=== PATIENT | female | born 1960 | race Caucasian/White ===

== ENCOUNTER 2019-12-04 16:21 | Emergency (ER) | payer BC ==
[~2019-12-04] VITALS: Ht 160 cm; Wt 83.5 kg
[~2019-12-04 16:21] MED LIST: AMOX500T2 PO; ATEN50TA PO; IBUP-1970 PO; P-EP1TAB80 PO; PRAZ5CAP2 PO
[2019-12-04 16:58] VITALS: BP_SYST 144
[2019-12-04 17:41] LABS: BASOPHILS # (AUTO) 0.1 K/uL (0.0-0.2); BASOPHILS % (AUTO) 0.9 % (0.0-2.0); EOSINOPHILS # (AUTO) 0.1 K/uL (0.0-0.4); EOSINOPHILS % (AUTO) 1.7 % (0.0-4.0); HEMATOCRIT 43.5 % (36-48); HEMOGLOBIN 14.6 g/dL (12.0-16.0); LYMPHOCYTES # (AUTO) 2.3 K/uL (1.0-5.5); LYMPHOCYTES % (AUTO) 30.2 % (20.5-51.5); MEAN CORPUSCULAR HEMOGLOBIN 31 pg (27-31); MEAN CORPUSCULAR HGB CONC 34 % (32-36); MEAN CORPUSCULAR VOLUME 92 fL (79.0-98.0); MONOCYTES # (AUTO) 0.6 K/uL (0.0-1.0); MONOCYTES % (AUTO) 8.4 % (1.7-9.3); NEUTROPHILS # (AUTO) 4.5 K/uL (1.8-7.7); NEUTROPHILS % (AUTO) 58.8 % (40.0-70.0); PLATELET COUNT (AUTO) 262 K/uL (130-430); RED BLOOD CELL COUNT(AUTO) 4.75 MIL/uL (4.2-6.2); RED CELL DISTRIBUTION WIDTH 13.5 % (9.0-15.0); WHITE BLOOD COUNT (AUTO) 7.7 K/uL (4.8-10.8)
[2019-12-04 17:48] LABS: ANION GAP 8 (5-15); CALCIUM 9.8 mg/dL (8.4-11.0); CHLORIDE 100 mmol/L (98-107); CREATININE 0.87 mg/dL (0.55-1.30); GLUCOSE 97 mg/dL (70-99); SODIUM SERUM 137 mmol/L (136-145); UREA NITROGEN, BLOOD 19 mg/dL (8-21)
[2019-12-04 17:49] LABS: GFR AFRICAN AMERICAN 85 mL/min (>90)
[2019-12-04] MEDS ORDERED: POTASSIUM CHLORIDE 20 MEQ TAB.PRT.SR PO ONE (18:30)
[2019-12-04 18:56] VITALS: BP_SYST 142
== END 2019-12-04 18:56 | disposition home or self-care (01) ==
LOC: SED 16:21
DX: R06.00 Dyspnea, unspecified (principal); R07.89 Other chest pain; I10 Essential (primary) hypertension; Z79.899 Other long term (current) drug therapy
CPT/HCPCS: 36415; 80048; 81002; 84484; 85025; 85379; 99283

== ENCOUNTER 2020-07-31 09:14 | Outpatient (CLI) | payer BC | END 2020-07-31 20:33 | disposition home or self-care (01) | LOC: SNM 09:14 | PROVIDERS: ATTEND Family Medicine Geriatric Medicine | DX: E21.0 Primary hyperparathyroidism (principal) | CPT/HCPCS: 78070; A9500 ==

== ENCOUNTER 2022-10-26 10:56 | Emergency (ER) | payer BC ==
[~2022-10-26] VITALS: Ht 162.6 cm; Wt 76.7 kg
[2022-10-26 11:24] VITALS: BP_SYST 162
--- NOTE | 2022-10-26 11:26 | NUR ---
Patient to ER bed 06 to gown for evaluation. Side rails up. Report given to MANISHA NINO.
--- NOTE | 2022-10-26 11:27 | NUR ---
patient presents to er c/o chronic abdominal pain no acute distress.
--- NOTE | 2022-10-26 11:30 | NUR ---
ER at bedside examining patient.
[2022-10-26 12:30] LABS: BASOPHILS # (AUTO) 0.1 K/uL (0.0-0.2); EOSINOPHILS # (AUTO) 0.1 K/uL (0.0-0.4); EOSINOPHILS % (AUTO) 1.2 % (0.0-4.0); HEMATOCRIT 43.5 % (36-48); HEMOGLOBIN 15.1 g/dL (12.0-16.0); LYMPHOCYTES # (AUTO) 1.7 K/uL (1.0-5.5); LYMPHOCYTES % (AUTO) 18.7 % (20.5-51.5); MEAN CORPUSCULAR HEMOGLOBIN 30 pg (27-31); MEAN CORPUSCULAR HGB CONC 35 % (32-36); MEAN CORPUSCULAR VOLUME 87 fL (79.0-98.0); MONOCYTES # (AUTO) 0.8 K/uL (0.0-1.0); MONOCYTES % (AUTO) 9.1 % (1.7-9.3); NEUTROPHILS # (AUTO) 6.2 K/uL (1.8-7.7); PLATELET COUNT (AUTO) 300 K/uL (130-430); RED BLOOD CELL COUNT(AUTO) 4.99 MIL/uL (4.2-6.2); RED CELL DISTRIBUTION WIDTH 13.5 % (9.0-15.0); WHITE BLOOD COUNT (AUTO) 8.8 K/uL (4.8-10.8)
[2022-10-26 12:31] LABS: CALCIUM 10.3 mg/dL (8.4-11.0); CREATININE 0.99 mg/dL (0.55-1.30)
[2022-10-26 12:38] LABS: ALBUMIN 3.6 g/dL (3.4-4.8); TOTAL BILIRUBIN 0.7 mg/dL (0.0-1.0)
[2022-10-26 12:46] LABS: BILIRUBIN,URINE 1+ (NEGATIVE); BLOOD, URINE 3+ (NEGATIVE); CLARITY/URINE CLEAR (CLEAR); COLOR,URINE YELLOW (YELLOW); GLUCOSE,URINE NEGATIVE (NEGATIVE); KETONES,URINE 1+ (NEGATIVE); LEUKOCYTE ESTERASE ,URINE NEGATIVE (NEGATIVE); NITRITE, URINE NEGATIVE (NEGATIVE); PH,URINE 5.5 (5.0-8.0); PROTEIN URINE TRACE (NEGATIVE); UROBILINOGEN,URINE 0.2 (0.2-1.0)
[2022-10-26 13:20] LABS: BACTERIA,URINE FEW /HPF (None Seen); CALCIUM OXALATE CRYSTALS,UR 0-10 /HPF (None Seen); WBC,URINE 0-3 /HPF (0-3)
[2022-10-26] MEDS ORDERED: POTASSIUM CHLORIDE 20 MEQ TAB.PRT.SR PO ONE (13:30)
[2022-10-26] MEDS ORDERED: KETOROLAC TROMETHAMINE 30 MG VIAL IVP ONE (14:15)
[2022-10-26] MEDS ORDERED: HYDR-3917 PO (15:40)
[2022-10-26] MEDS ORDERED: IBUP-1969 PO (15:40)
--- NOTE | 2022-10-26 16:20 | NUR ---
Patient given written and verbal discharge instructions and verbalizes understanding. ER MD discussed with patient the results and treatment provided. Patient in stable condition. ID arm band removed. Rx of IBUPROFEN AND NORCO given. Patient educated on pain management and to follow up with PMD. Opportunity for questions provided and answered. Medication side effect fact sheet provided.
[2022-10-26 16:32] VITALS: BP_SYST 162
== END 2022-10-26 16:20 | disposition home or self-care (01) ==
LOC: SED 10:56
DX: K52.9 Noninfective gastroenteritis and colitis, unspecified (principal); R10.32 Left lower quadrant pain; I10 Essential (primary) hypertension; Z79.899 Other long term (current) drug therapy
CPT/HCPCS: 99285; 74177; 96374; 80053; 81000; 83690; 85025; 36415; 76376; J1885; Q9967

== ENCOUNTER 2023-03-18 08:31 | Day surgery (SDC) | payer BC ==
[~2023-03-18] VITALS: Ht 129.5 cm; Wt 77.1 kg
[~2023-03-18 08:31] MED LIST changes: +HYDR-3917 PO; +IBUP-1969 PO
[2023-03-18] MEDS ORDERED: WATER FOR INJECTION STERILE IV ONE (11:10)
[2023-03-18] MEDS ORDERED: PROPOFOL 200MG/ 20ML VIAL (DIPRIVAN) IV ONE (11:10)
[2023-03-18 13:48] VITALS: BP_SYST 137
== END 2023-03-18 12:17 | disposition home or self-care (01) ==
LOC: SDS 08:31 → SMU 08:33 → SDS 12:17
PROVIDERS: ATTEND Internal Medicine
DX: R19.4 Change in bowel habit (principal); Z80.0 Family history of malignant neoplasm of digestive organs; K57.30 Diverticulosis of large intestine without perforation or abscess without bleeding; K64.8 Other hemorrhoids; K21.9 Gastro-esophageal reflux disease without esophagitis; I10 Essential (primary) hypertension; Z86.010 Personal history of colon polyps; Z79.899 Other long term (current) drug therapy
CPT/HCPCS: 45380; 93005; 88305; G0378; J2704

== ENCOUNTER 2024-01-14 08:05 | Day surgery (SDC) | payer BC ==
[~2024-01-14] VITALS: Ht 162.6 cm; Wt 79.4 kg
[2024-01-14 09:30] VITALS: O2SAT 99
[2024-01-14] MEDS ORDERED: PROPOFOL 200MG/ 20ML VIAL (DIPRIVAN) IV ONE (10:00)
[2024-01-14 11:36] VITALS: BP_SYST 136; PULSE 73; RESP 16
== END 2024-01-14 10:51 | disposition home or self-care (01) ==
LOC: SDS 08:05 → SMU 08:07 → SDS 10:51
PROVIDERS: ATTEND Internal Medicine
DX: R10.32 Left lower quadrant pain (principal); K44.9 Diaphragmatic hernia without obstruction or gangrene; I10 Essential (primary) hypertension; E03.9 Hypothyroidism, unspecified; K21.9 Gastro-esophageal reflux disease without esophagitis; Z86.010 Personal history of colon polyps; Z98.890 Other specified postprocedural states; Z79.899 Other long term (current) drug therapy; Z80.0 Family history of malignant neoplasm of digestive organs
CPT/HCPCS: 43251; 43239; 88305; 88312; 88313; G0378; J2704